=== PATIENT | female | born 1970 | race Hispanic/Latino ===

== ENCOUNTER 2018-07-21 13:28 | Emergency (ER) | payer BC ==
[2018-07-21 13:58] LABS: EOSINOPHILS % (AUTO) 2.6 % (0.0-8.0); HEMATOCRIT 35.4 % (36-48); LYMPHOCYTES % (AUTO) 8.9 % (21.0-51.0); MEAN CORPUSCULAR HEMOGLOBIN 33.5 pg (27.0-33.0); MEAN CORPUSCULAR HGB CONC 33.6 g/dL (32.0-36.0); MEAN CORPUSCULAR VOLUME 99.8 fL (79-99); MONOCYTES % (AUTO) 12.2 % (3.0-13.0); NEUTROPHILS % (AUTO) 75.3 % (40.0-77.0); NUCLEATED RED BLOOD CELLS 0.1 % (0.0-0.19); PLATELET COUNT (AUTO) 60 K/uL (130-400); RED BLOOD CELL COUNT(AUTO) 3.55 MIL/uL (4.00-5.50); RED CELL DISTRIBUTION WIDTH 16.6 % (11.0-15.5); WHITE BLOOD COUNT (AUTO) 3.2 K/uL (4.8-10.8)
[2018-07-21 14:14] LABS: CREATININE 7.4 mg/dL (0.5-1.5); POTASSIUM 4.8 mmol/L (3.5-5.1)
[2018-07-21 14:19] LABS: ALBUMIN 3.6 g/dL (3.5-5.0); BILIRUBIN,TOTAL 0.9 mg/dL (0.2-1.0); PLATELET MORPHOLOGY COMMENT DECREASED; TOTAL PROTEIN, SERUM 7.6 g/dL (6.0-8.3)
[2018-07-21 15:03] LABS: INR 1.1 (0.85-1.15); PARTIAL THROMBOPLASTIN TIME 32.9 SEC (26.3-35.5); PROTHROMBIN TIME 11.5 SEC (9.6-11.6)
== END 2018-07-21 16:31 | disposition home or self-care (01) ==
LOC: EDH 13:28
DX: I12.0 Hypertensive chronic kidney disease with stage 5 chronic kidney disease or end stage renal disease (principal); N18.6 End stage renal disease; M79.605 Pain in left leg; Z99.2 Dependence on renal dialysis; Z98.890 Other specified postprocedural states; Z86.718 Personal history of other venous thrombosis and embolism
CPT/HCPCS: 36415; 80053; 85025; 85610; 85730; 93971

== ENCOUNTER 2021-10-07 19:52 | Inpatient (IN) | payer BC ==
[~2021-10-07] VITALS: Ht 149.9 cm; Wt 42.9 kg
[2021-10-07] MEDS ORDERED: ONDANSETRON 4MG INJ IVP ONE (21:00)
[2021-10-07] MEDS ORDERED: MORPHINE 2 MG SYG IVP ONE (21:00)
[2021-10-07 21:28] LABS: BASOPHILS % (AUTO) 0.9 % (0.0-5.0); EOSINOPHILS % (AUTO) 9.7 % (0.0-8.0); HEMATOCRIT 33.2 % (36-48); LYMPHOCYTES % (AUTO) 17.2 % (21.0-51.0); MEAN CORPUSCULAR HEMOGLOBIN 30.3 pg (27.0-33.0); MEAN CORPUSCULAR HGB CONC 32.5 g/dL (32.0-36.0); MONOCYTES % (AUTO) 9.8 % (3.0-13.0); NEUTROPHILS % (AUTO) 62.2 % (40.0-77.0); PLATELET COUNT (AUTO) 128 K/uL (130-400); RED BLOOD CELL COUNT(AUTO) 3.57 MIL/uL (4.00-5.50); RED CELL DISTRIBUTION WIDTH 15.1 % (11.0-15.5); WHITE BLOOD COUNT (AUTO) 5.7 K/uL (4.8-10.8)
[2021-10-07 21:40] LABS: ALBUMIN 3.8 g/dL (3.5-5.0); BILIRUBIN,TOTAL 0.8 mg/dL (0.2-1.0); CREATININE 6.8 mg/dL (0.5-1.5); TOTAL PROTEIN, SERUM 8.9 g/dL (6.0-8.3)
[2021-10-07 21:50] LABS: POTASSIUM 6.3 mmol/L (3.5-5.1)
[2021-10-07] MEDS ORDERED: DEXTROSE 50%-WATER 25 GM/50 ML VIAL IV ONE (22:00)
[2021-10-07] MEDS ORDERED: CALCIUM GLUC 1GM 1 GM in 0.9%NACL 100ML 100 ML IV ONE (22:00)
[2021-10-07] MEDS ORDERED: INSULIN HUMULIN R 100 UNIT/ML 3ML IV ONE (22:00)
[2021-10-07] MEDS ORDERED: DEXTROSE 50%-WATER 50 ML DISP.SYRIN IV ONE (22:05)
[2021-10-07] MEDS ORDERED: CALCIUM GLUC 1GM/10ML VIAL ONE (22:07)
[2021-10-07] MEDS ORDERED: 0.9%NACL 100ML 100 ML ONE (22:07)
[2021-10-07] MEDS: KAYEXALATE 15GM/60ML PO NR (22:11)
[2021-10-07] MEDS ORDERED: MORPHINE 4 MG SYG IV PRN (23:00)
[2021-10-07] MEDS ORDERED: HYDRALAZINE 20MG/ML VIAL IV PRN (23:30)
[2021-10-08] VITALS (29 sets, daily range): BP systolic 133–185; BP diastolic 87–126
[2021-10-08] MEDS ORDERED: PHARMACY COMMUNICATION MISC SCH
[2021-10-08 05:29] LABS: BASOPHILS % (AUTO) 1.3 % (0.0-5.0); EOSINOPHILS % (AUTO) 3.2 % (0.0-8.0); HEMATOCRIT 33.7 % (36-48); LYMPHOCYTES % (AUTO) 16.3 % (21.0-51.0); MEAN CORPUSCULAR HEMOGLOBIN 29.3 pg (27.0-33.0); MEAN CORPUSCULAR VOLUME 97.7 fL (79-99); MONOCYTES % (AUTO) 12.1 % (3.0-13.0); NEUTROPHILS % (AUTO) 66.7 % (40.0-77.0); PLATELET COUNT (AUTO) 119 K/uL (130-400); RED BLOOD CELL COUNT(AUTO) 3.45 MIL/uL (4.00-5.50); RED CELL DISTRIBUTION WIDTH 15.1 % (11.0-15.5); WHITE BLOOD COUNT (AUTO) 5.3 K/uL (4.8-10.8)
[2021-10-08 05:39] LABS: INR 1.06 (0.85-1.15); PROTHROMBIN TIME 11.5 SEC (9.6-11.6)
[2021-10-08 05:40] LABS: PARTIAL THROMBOPLASTIN TIME 29.2 SEC (26.3-35.5)
[2021-10-08 05:49] LABS: CREATININE 7.2 mg/dL (0.5-1.5); MAGNESIUM 2.6 mg/dL (1.80-2.40); PHOSPHORUS 5.8 mg/dL (2.5-4.9)
[2021-10-08] MEDS ORDERED: INSULIN HUMULIN R 100 UNIT/ML 3ML SQ SCH (07:30)
[2021-10-08] MEDS: ONDANSETRON 4MG INJ IV PRN ×3 (08:11→23:59)
[2021-10-08] MEDS ORDERED: METOPROLOL TARTRATE 25 MG TAB PO SCH (09:00)
[2021-10-08] MEDS ORDERED: CLON0.3T PO (10:44)
[2021-10-08] MEDS ORDERED: AMLO-258 PO (10:44)
[2021-10-08] MEDS ORDERED: METO100T14 PO (10:44)
[2021-10-08] MEDS ORDERED: LISI20TA24 PO (10:44)
[2021-10-08] MEDS ORDERED: OMEP40CA21 PO (10:44)
[2021-10-08] MEDS ORDERED: LACT10SO62 PO (10:44)
[2021-10-08] MEDS ORDERED: FOLI0.8T22 PO (10:44)
[2021-10-08] MEDS ORDERED: SEVE800T7 PO (10:44)
[2021-10-08] MEDS: MORPHINE 2 MG SYG IV PRN ×2 (11:30→15:27)
[2021-10-08] MEDS ORDERED: MORPHINE 2 MG SYG IV PRN (15:00)
[2021-10-08] MEDS: FAMOTIDINE 20MG TAB PO SCH (15:27)
[2021-10-08] MEDS ORDERED: MORPHINE 2 MG SYG IVP PRN (15:30)
[2021-10-08 16:13] LABS: SPECIMENTYPE,BODY FLUID ASCITES
[2021-10-08 16:14] LABS: APPEARANCE BODY FLUID CLOUDY (CLEAR); BODY FLUID WBC 166 /cu. mm.; COLOR,BODY FLUID ORANGE (LT YELLOW); TOTAL VOLUME,BODY FLUID 3200 mL
[2021-10-08 16:15] LABS: BODY FLUID RBC 9250 /cu. mm.
[2021-10-08] MEDS: SEVELAMER HCL 800 MG TABLET PO SCH (16:20)
[2021-10-08 16:33] LABS: BF LYMPHOCYTE 9 %
[2021-10-08] MEDS ORDERED: HYDROMORPHONE 0.5 MG SYG (0.5MG/0.5ML) IVP PRN (18:00)
[2021-10-08] MEDS: KAYEXALATE 15GM/60ML PO NR (19:36)
[2021-10-08] MEDS: METOPROLOL TARTRATE 50 MG TAB PO SCH (20:28)
[2021-10-08] MEDS: LISINOPRIL 20 MG TABLET PO SCH (20:28)
[2021-10-08] MEDS: CLONIDINE HCL 0.1 MG TABLET PO SCH (20:29)
[2021-10-08] MEDS: HYDROMORPHONE 0.5 MG SYG (0.5MG/0.5ML) IVP PRN (20:29)
[2021-10-09] VITALS (7 sets, daily range): BP systolic 123–171; BP diastolic 71–103
[2021-10-09] MEDS ORDERED: METOPROLOL TARTRATE 1 MG/ML 5ML VIAL IV ONE (01:30)
[2021-10-09 04:40] LABS: BASOPHILS % (AUTO) 1.3 % (0.0-5.0); EOSINOPHILS % (AUTO) 0.8 % (0.0-8.0); HEMATOCRIT 35.7 % (36-48); LYMPHOCYTES % (AUTO) 7.8 % (21.0-51.0); MEAN CORPUSCULAR HEMOGLOBIN 29.3 pg (27.0-33.0); MEAN CORPUSCULAR HGB CONC 31.1 g/dL (32.0-36.0); MEAN CORPUSCULAR VOLUME 94.2 fL (79-99); MONOCYTES % (AUTO) 11.9 % (3.0-13.0); NEUTROPHILS % (AUTO) 77.9 % (40.0-77.0); PLATELET COUNT (AUTO) 138 K/uL (130-400); RED BLOOD CELL COUNT(AUTO) 3.79 MIL/uL (4.00-5.50); RED CELL DISTRIBUTION WIDTH 14.9 % (11.0-15.5); WHITE BLOOD COUNT (AUTO) 7.1 K/uL (4.8-10.8)
[2021-10-09 04:56] LABS: CREATININE 5.5 mg/dL (0.5-1.5); POTASSIUM 4.9 mmol/L (3.5-5.1)
[2021-10-09] MEDS: FAMOTIDINE 20MG TAB PO SCH (08:13)
[2021-10-09] MEDS: LISINOPRIL 20 MG TABLET PO SCH ×2 (08:13→20:53)
[2021-10-09] MEDS: AMLODIPINE 5 MG TAB PO SCH (08:14)
[2021-10-09] MEDS: CLONIDINE HCL 0.1 MG TABLET PO SCH ×3 (08:14→20:52)
[2021-10-09] MEDS: Vitamin B Complex/Vit C/Folic Acid PO SCH (08:14)
[2021-10-09] MEDS: METOPROLOL TARTRATE 50 MG TAB PO SCH ×2 (08:14→20:53)
[2021-10-09] MEDS: SEVELAMER HCL 800 MG TABLET PO SCH ×3 (08:14→16:02)
[2021-10-09] MEDS: LACTULOSE 20 GM/30 ML UDCUP PO SCH (08:15)
[2021-10-09] MEDS: ONDANSETRON 4MG INJ IV PRN ×2 (08:20→20:52)
[2021-10-09 09:00] LABS: ALBUMIN 3.6 g/dL (3.5-5.0); BILIRUBIN,DIRECT 0.4 mg/dL (0.0-0.3); BILIRUBIN,TOTAL 0.9 mg/dL (0.2-1.0); TOTAL PROTEIN, SERUM 8.6 g/dL (6.0-8.3)
[2021-10-09] MEDS: HYDROMORPHONE 0.5 MG SYG (0.5MG/0.5ML) IVP PRN ×2 (10:19→20:53)
[2021-10-09] MEDS ORDERED: CEFTRIAXONE 1G VIAL IVP SCH (11:00)
[2021-10-09] MEDS ORDERED: METRONIDAZOLE 500 MG TABLET PO SCH (11:00)
[2021-10-09] MEDS: METRONIDAZOLE 500 MG TABLET PO SCH ×2 (13:42→20:52)
[2021-10-09] MEDS ORDERED: HEPARIN 5,000 UNIT VIAL SQ SCH (19:00)
[2021-10-09] MEDS: HEPARIN 5,000 UNIT VIAL SQ SCH (21:05)
[2021-10-10] VITALS (19 sets, daily range): BP systolic 102–159; BP diastolic 53–97
[2021-10-10 04:56] LABS: HEMATOCRIT 36.8 % (36-48); MEAN CORPUSCULAR HEMOGLOBIN 29.8 pg (27.0-33.0); MEAN CORPUSCULAR HGB CONC 30.7 g/dL (32.0-36.0); MEAN CORPUSCULAR VOLUME 97.1 fL (79-99); RED BLOOD CELL COUNT(AUTO) 3.79 MIL/uL (4.00-5.50); RED CELL DISTRIBUTION WIDTH 15.1 % (11.0-15.5); WHITE BLOOD COUNT (AUTO) 7.1 K/uL (4.8-10.8)
[2021-10-10 05:06] LABS: CREATININE 7.6 mg/dL (0.5-1.5); POTASSIUM 5.7 mmol/L (3.5-5.1)
[2021-10-10] MEDS: METRONIDAZOLE 500 MG TABLET PO SCH ×2 (06:35→14:20)
[2021-10-10] MEDS: AMLODIPINE 5 MG TAB PO SCH (08:44)
[2021-10-10] MEDS: SEVELAMER HCL 800 MG TABLET PO SCH ×3 (08:44→17:11)
[2021-10-10] MEDS: METOPROLOL TARTRATE 50 MG TAB PO SCH (08:45)
[2021-10-10] MEDS: LACTULOSE 20 GM/30 ML UDCUP PO SCH (08:45)
[2021-10-10] MEDS: FAMOTIDINE 20MG TAB PO SCH (08:46)
[2021-10-10] MEDS: Vitamin B Complex/Vit C/Folic Acid PO SCH (08:46)
[2021-10-10] MEDS: LISINOPRIL 20 MG TABLET PO SCH (08:46)
[2021-10-10] MEDS: CLONIDINE HCL 0.1 MG TABLET PO SCH ×2 (08:47→13:51)
[2021-10-10] MEDS: HYDROMORPHONE 0.5 MG SYG (0.5MG/0.5ML) IVP PRN (08:52)
[2021-10-10] MEDS: HEPARIN 5,000 UNIT VIAL SQ SCH (08:54)
[2021-10-10] MEDS ORDERED: CEFTRIAXONE 1G VIAL IVP SCH (09:00)
[2021-10-10] MEDS ORDERED: CEFU500T67 PO (11:42)
[2021-10-10] MEDS ORDERED: METR-172 PO (11:42)
== END 2021-10-10 18:27 | disposition home or self-care (01) | DRG 432 ==
LOC: EDH 19:52 → EDHIP 22:40 → 2AH 10-08 00:30
PROVIDERS: ADMIT Hospitalist; ATTEND Hospitalist
PROC: 5A1D70Z Performance of Urinary Filtration, Intermittent, Less than 6 Hours Per Day (ICD-10-PCS; principal; 2021-10-07)
PROC: 0W9G3ZZ Drainage of Peritoneal Cavity, Percutaneous Approach (ICD-10-PCS; 2021-10-08)
PROC: 5A1D70Z Performance of Urinary Filtration, Intermittent, Less than 6 Hours Per Day (ICD-10-PCS; 2021-10-09)
DX: K74.60 Unspecified cirrhosis of liver (principal); N18.6 End stage renal disease; R18.8 Other ascites; J81.1 Chronic pulmonary edema; K80.10 Calculus of gallbladder with chronic cholecystitis without obstruction; I12.0 Hypertensive chronic kidney disease with stage 5 chronic kidney disease or end stage renal disease; E87.5 Hyperkalemia; E78.5 Hyperlipidemia, unspecified; Z99.2 Dependence on renal dialysis
CPT/HCPCS: 36415; 49083; 71045; 74176; 76705; 78226; 80048; 80053; 80076; 82140; 82150; 83690; 83735; 84100; 85025; 85027; 85610; 85730; 86704; 86706; 87071; 87205; 87340; 89051; 90935; 93005; A9537; C1729; G0378; J0360; J0610; J0696; J1170; J1644; J1815; J2405; J3490; J7070